=== PATIENT | female | born 1990 | race Caucasian/White ===

== ENCOUNTER 2016-10-20 10:37 | Emergency (ER) | payer OTHER ==
[2016-10-20 10:41] VITALS: BP 136/92; PULSE 117; RESP 16; O2SAT 98
--- NOTE | 2016-10-20 12:13 | ED.REPORT ---
HPI-Rash / Abscess Date of Service Oct 20, 2016 ED Provider: Feng Gomes MD The patient is an otherwise healthy 26 year old female who presents to the ED due to two potential abscesses in the groin region for the past few days. Pt thought it was an ingrown hair, but the infection has not gone away. She describes the abscesses as painful and uncomfortable. There has been some slight drainage. Pt uses an implant control. She has not been on antibiotics in the past few weeks. Nursing Notes Stated Complaint: RT LEG BOIL Chief Complaint: Skin Rash/Abscess Nursing Notes Reviewed: Yes ([employer], [employer] not reconciled) Allergies: Coded Allergies: No Known Allergies (Unverified , 10/20/16) Scheduled Sulfamethoxazole/Trimeth 800-160 mg (Bactrim DS) 1 Each Tablet 1 TABLET PO BID General Time Seen by MD: 12:10 Chief Complaint Abscess Hx Obtained From: Patient Arrived By: Walk-in Onset Occurred: 2 days ago Symptom Duration: Since onset Severity: Current: No pain currently Recent Healthcare: No recent doctor visit, No recent hospitalization Similar Sx Previous: No Past Medical History Past Medical History none Past Surgical History Reports: Smoking History Never Smoker Social History Other Social History: Good social support, Local resident Ambulatory Status Independent Review of Systems Constitutional: Denies: Fever Skin: Reports Rash (abscess on groin area) Complete sys rev & neg: except as marked. Physical Exam Initial Vital Signs Vital Signs (First) Date Time Temp Pulse Resp B/P Pulse Ox O2 Delivery O2 Flow Rate FiO2 10/20/16 10:41 36.8 117 16 136/92 98 Room Air Initial VS: Reviewed, Vital signs abnormal (HR 117) Head / Eyes: Atraumatic, Normocephalic, PERRL ENT: Mucous membranes moist, Conjunctiva normal, No scleral icterus Neck: Supple, Non-tender, Full range of motion Respiratory: Breath sounds normal, Clear to auscultation, No respiratory distress Cardiovascular: Regular rate & rhythm, Heart sounds normal, Intact distal pulses Abdomen / GI: Soft, Non-tender, No guarding, No rebound, No distention Extremities: Vascular intact, Neuro intact, No swelling, No tenderness Psychiatric: Mood/affect normal, Behavior normal, Normal thought content General/Constitutional: Awake, Alert, No acute distress, Cooperative, Not toxic appearing Skin: Color NL, Warm, Dry Abscess #1 Location/Condition: Positive: Tender folliculitis- one small healed area in right groin another mostly healed area in the right thigh no surrounding cellulitis no induration Re-Eval/Medical Decision Med Decision/Clinical Course This is a 26-year-old female presents concerned she has an infection or an abscess. She reports she has had intermittent ingrown hairs, has a slight right groin posterior thigh causes some discomfort. She has had no fevers chills or additional complaints. On exam she has normal vitals, she is clinically well-appearing, She reports she had some drainage from the site in her groin earlier, on exam is a small wound (2mm in size) with no active signs of heidy infection or evidence of this time, there is no induration, no active drainage, no surrounding cellulitis. And the posterior thigh site also appears quite minimal -both sites are at the base of the hair follicles mild folliculitis remains most likely etiology. Given his the patient's been covered with Bactrim. There is nothing that I amenable to culture. Some topical viscous lidocaine is also applied given the location in the right groin. Patient is being discharged in stable condition Source of Hx: Old records Differential Diagnosis: Negative: Abscess, Hand, foot, mouth disease, Heat rash , miliaria, Intertrigo, Kawasaki's disease, Osteomyelitis, Scabies, Scarlet fever, Urticaria Counseled Regarding: Diagnosis, Lab results, Need for follow-up, When/why to return to ED Discharge & Departure Impression: Primary Impression: Folliculitis Disposition: Home Discharge Condition All VS Reviewed: Yes Condition: Stable Additional Instructions: 1. Take the antibiotic trimethoprim-sulfa 1 tablet twice a day for 7 days 2. Apply the numbing gel as needed for discomfort. 3. Symptoms should improve with time. 4. Return if new or worsening symptoms Referrals: [facility] Scribe Attestation Portion of this note were transcribed by Grace Tovar. I, Dr. Gomes, personally performed the history, physical exam, and medical decision-making: I reviewed and confirmed the accuracy for the information in the transcribed note. Signed by: caron Jaquez, 10/20/16 1300 copies to: [facility] Feng Gomes MD Oct 20, 2016 12:13 Grace Tovar Oct 20, 2016 12:20
[2016-10-20] MEDS ORDERED: Lidocaine 2% 5 mL Urojet Topical Jelly Syringe TOPICAL ONE (12:20)
[2016-10-20] MEDS ORDERED: Lidocaine 2% 6mL Topical Jelly ONE (12:23)
[2016-10-20] MEDS ORDERED: SULF1TAB7 PO (12:28)
== END 2016-10-20 12:48 | disposition home or self-care (01) ==
LOC: SED 10:37
DX: L73.9 Follicular disorder, unspecified (principal)